=== PATIENT | male | born 1940 ===

== ENCOUNTER 2018-09-15 10:24 | Outpatient (CLI) | payer MEDICARE | END 2018-09-15 10:25 | disposition home or self-care (01) | LOC: C.CTH 10:24 ==

== ENCOUNTER 2018-10-01 15:10 | Outpatient (CLI) | payer MEDICARE | END 2018-10-01 15:11 | disposition home or self-care (01) | LOC: C.RADIC 15:10 | DX: C61 Malignant neoplasm of prostate (principal); R31.29 Other microscopic hematuria ==